=== PATIENT | female | born 1965 | race Caucasian/White ===

== ENCOUNTER 2019-04-14 06:02 | Emergency (ER) | payer SELFPAY ==
[2019-04-14] MEDS ORDERED: Ondansetron INJ* 2 MG/ML VIAL IV ONE (06:32)
--- NOTE | 2019-04-14 06:33 | ED ---
Abdominal Pain/Female - HPI Summary HPI Summary: Pt is a 53 y/o F presenting to the ED with a chief complaint of abd pain first onset 04/14/19 around 0000. She woke up in the night with nausea and one episode of emesis, with intense abdominal cramping coming on directly afterwards. Since then, the pain has been intermittent in severity but constant in timing. She denies diarrhea or fever. - History of Current Complaint Chief Complaint: EDAbdPain Stated Complaint: ABD PAIN PER PT Time Seen by Provider: 04/14/19 06:17 Hx Obtained From: Patient Onset/Duration: Sudden Onset, Lasting Hours, Still Present Timing: Constant Severity Initially: Moderate Severity Currently: Severe Pain Intensity: 7 Pain Scale Used: 0-10 Numeric Location: Discrete At: RLQ Radiates: No Character: Cramping Aggravating Factor(s): Nothing Alleviating Factor(s): Nothing Associated Signs and Symptoms: Positive: Nausea, Vomiting. Negative: Fever, Diarrhea Allergies/Adverse Reactions: Allergies Allergy/AdvReac Type Severity Reaction Status Date / Time No Known Allergies Allergy Verified 04/14/19 06:04 PMH/Surg Hx/FS Hx/Imm Hx Previously Healthy: Yes Endocrine/Hematology History: Reports: Hx Thyroid Disease Denies: Hx Diabetes Cardiovascular History: Denies: Hx Hypertension Infectious Disease History: No Infectious Disease History: Denies: Traveled Outside the [place] in Last 30 Days - Family History Known Family History: Negative: Cardiac Disease - Social History Alcohol Use: None Hx Substance Use: No Substance Use Type: Reports: None Review of Systems Negative: Fever Positive: Abdominal Pain, Vomiting, Nausea. Negative: Diarrhea All Other Systems Reviewed And Are Negative: Yes Physical Exam - Summary Physical Exam Summary: Appearance: Well-appearing, Well-nourished, lying in bed comfortably Skin: Warm, dry, no obvious rash Eyes: sclera anicteric, no conjunctival pallor ENT: mucous membranes moist, pharynx appears normal Neck: Supple, nontender Respiratory: Clear to auscultation, no signs of respiratory distress Cardiovascular: Normal S1, S2. No murmurs. Normal distal pulses in tibial and radial bilaterally. Abdomen: Soft with very focal RLQ tenderness with guarding and rebound. She puts her finger on McBurneys point as the major area of tenderness. Musculoskeletal: Normal, Strength/ROM Intact Neurological: A&Ox3, awake and alert, mentation is normal, speech is fluent and appropriate Psychiatric: affect is normal, does not appear anxious or depressed Triage Information Reviewed: Yes Vital Signs On Initial Exam: Initial Vitals Temp Pulse Resp BP Pulse Ox 98.0 F 63 16 116/74 100 04/14/19 06:02 04/14/19 06:02 04/14/19 06:02 04/14/19 06:02 04/14/19 06:02 Vital Signs Reviewed: Yes Diagnostics - Vital Signs Vital Signs Temp Pulse Resp BP Pulse Ox 04/14/19 06:02 98.0 F 63 16 116/74 100 - Laboratory Result Diagrams: 04/14/19 06:49 04/14/19 06:49 Lab Statement: Any lab studies that have been ordered have been reviewed, and results considered in the medical decision making process. Abdominal Pain Fem Course/Dx - Course Course Of Treatment: Pt is a 53 y/o F presenting to the ED with a chief complaint of abd pain first onset 04/14/19 around 0000. She woke up in the night with nausea and one episode of emesis, with intense abdominal cramping coming on directly afterwards. Since then, the pain has been intermittent in severity but constant in timing. She denies diarrhea or fever. The pt will be signed out to Dr. Toro pending CT abd/pelv. - Diagnoses Provider Diagnoses: Gastroenteritis, Lower abdominal pain Discharge - Sign-Out/Discharge Documenting (check all that apply): Sign-Out Patient Signing out patient TO: Stu Toro Patient Received Moderate/Deep Sedation with Procedure: No - Discharge Plan Condition: Stable Disposition: HOME Patient Education Materials: Gastroenteritis (DC), Abdominal Pain (ED) Referrals: Care [facility] [Outside] (3 days) Additional Instructions: FOLLOW UP WITH YOUR PRIMARY CARE PROVIDER WITHIN ONE WEEK. RETURN TO THE ED FOR ANY WORSENING OR NEW SYMPTOMS. - Billing Disposition and Condition Condition: STABLE Disposition: Home - Attestation Statements Document Initiated by Scribe: Yes Documenting Scribe: Rosalie Valle Provider For Whom Miriam is Documenting (Include Credential): Rony Kimble MD. Scribe Attestation: Rosalie Lane, scribed for Rony Kimble MD. on 04/17/19 at 0449. Scribe Documentation Reviewed: Yes Provider Attestation: The documentation as recorded by the scribe, Rosalie Valle accurately reflects the service I personally performed and the decisions made by me, Rony Kimble MD. Status of Zeyadibe Document: Viewed
[2019-04-14] MEDS: NS 0.9% 1000 ML** 3,000 ML IV ONE (06:47)
[2019-04-14 06:59] LABS: ABS Eosinophils 0.1 10^3/ul (0-0.6); ABS Lymphocytes 0.8 10^3/ul (1.0-4.8); ABS Monocytes 0.5 10^3/ul (0-0.8); ABS Neutrophils 6.5 10^3/ul (1.5-7.7); Eosinophil % 0.7 %; Hematocrit 34 % (35-47); Hemoglobin 11.2 g/dL (12.0-16.0); Lymphocyte % 10.1 %; Mean Corpuscular HGB Conc 33 g/dL (31-36); Mean Corpuscular Hemoglobin 27 pg (27-31); Mean Corpuscular Volume 82 fL (80-97); Mean Platelet Volume 8.2 fL (7.4-10.4); Platelet Count 262 10^3/uL (150-450); Red Blood Count 4.08 10^6 /uL (3.70-4.87); Red Cell Distribution Width 13 % (10.5-15); White Blood Count 7.9 10^3/uL (3.5-10.8)
[2019-04-14] MEDS ORDERED: Morphine 4 MG/ML VIAL (1 ml) 4 MG/ML VIAL IV PRN (07:00)
[2019-04-14] MEDS ORDERED: Morphine 4 MG/ML VIAL (1 ml) 4 MG/ML VIAL IV SCH (07:00)
[2019-04-14 07:14] LABS: Albumin 4.1 g/dL (3.2-5.2); Albumin/Globulin Ratio 2.2 (1-3); BUN/Creatinine Ratio 21.7 (8-20); Calcium 8.2 mg/dL (8.6-10.3); EGFR African American 77.3 (>60); EGFR Non-African American 63.9 (>60); Globulin 1.9 g/dL (2-4); Potassium 2.8 mmol/L (3.5-5.0); Total Bilirubin 0.2 mg/dL (0.2-1.0)
--- NOTE | 2019-04-14 07:14 | ED ---
Progress - Progress Note Progress Note: This patient was signed out from Dr. Kimble to Dr. Toro upon shift change at 07 :00 04/14/[address] abdomen/pelvis. Upon exam the patient had RLQ tenderness. Abdomen/pelvis CT impression: Normal appendix documented. Fluid and gas distention of the colon is suspicious for colitis/gastroenteritis. ED physician has reviewed this imaging report. The patient will be discharged and follow up with his PCP. The patient is agreeable with this plan. Re-Evaluation - Re-Evaluation First Eval Re-Evaluation Time: 07:10 Change: Unchanged Comment: Pt has RLQ tenderness Course/Dx - Course Course Of Treatment: This patient was signed out by Dr. Gilmore. The patient came in complaining of right lower quadrant pain. Blood work shows a slight anemia with a hemoglobin 11.2 hematocrit 34, sodium is 146 and potassium 2.8 for which the patient was given potassium chloride. Code symptoms he quit 2 however the total protein 6. At this point the patient is drinking for an abdominopelvic CT with PO and IV contrast. Abdominopelvic CT impression: Normal appendix documented. Fluid and gas distention of the colon he suspicion for colitis versus gastroenteritis. I discussed all the findings and test results with the patient. Patient was instructed to return to the emergency room immediately if any of the symptoms return worsens. Plan of care was discussed with the patient and understands and agrees. All questions were answered at patient satisfaction. There were no further complaints or concerns. Lung exam before discharge: CTA B/L. Good air exchange. No wheezing or crackles heard. CVS: S1 and S2 present. No murmurs appreciated. Patient is alert and oriented x 3. Patient is hemodynamically stable. Patient will be discharged home with follow up PCP in the next 2-3 days - Diagnoses Provider Diagnoses: Gastroenteritis, Lower abdominal pain Discharge - Sign-Out/Discharge Documenting (check all that apply): Patient Departure - DC, Receiving Sign-Out Receiving patient FROM: Rony Kimble Patient Received Moderate/Deep Sedation with Procedure: No - Discharge Plan Condition: Stable Disposition: HOME Patient Education Materials: Gastroenteritis (DC), Abdominal Pain (ED) Referrals: Care [facility] [Outside] (3 days) Additional Instructions: FOLLOW UP WITH YOUR PRIMARY CARE PROVIDER WITHIN ONE WEEK. RETURN TO THE ED FOR ANY WORSENING OR NEW SYMPTOMS. - Billing Disposition and Condition Condition: STABLE Disposition: Home - Attestation Statements Document Initiated by Scribe: Yes Documenting Scribe: Jose Miguel Monroe Provider For Whom Scribe is Documenting (Include Credential): Stu Toro MD Scribe Attestation: IJose Miguel, scribed for Stu Toro MD on 04/15/19 at 1538. Scribe Documentation Reviewed: Yes Provider Attestation: The documentation as recorded by the Jose Miguel lopez accurately reflects the service I personally performed and the decisions made by Stu dean MD Status of Scribe Document: Viewed
[2019-04-14] MEDS: KCL 10 MEQ/50 ML IVPREMIX* 10 MEQ/50 ML BAG IV SCH ×3 (07:25→08:51)
[2019-04-14 07:45] LABS: Magnesium 1.8 mg/dL (1.9-2.7)
[2019-04-14] MEDS ORDERED: Iohexol 300* (CONTRAST) 10 ML SDV IV ONE (08:44)
[2019-04-14 10:13] VITALS: BP 100/52
== END 2019-04-14 10:12 | disposition home or self-care (01) ==
LOC: ED 06:02
DX: K52.9 Noninfective gastroenteritis and colitis, unspecified (principal); R10.813 Right lower quadrant abdominal tenderness
CPT/HCPCS: 36415; 74177; 80053; 83690; 83735; 85025; 96361; 96374; 96375; 99285; J2270; J2405; J3480; Q9967